=== PATIENT | male | born 1940 | race Hispanic/Latino ===

== ENCOUNTER 2018-01-08 08:05 | Outpatient (CLI) | payer MEDICAID ==
[2018-01-08 09:15] LABS: Blood Urea Nitrogen 16 mg/dL (9-20)
--- NOTE | 2018-01-08 10:06 | XRay Report ---
ROUTINE CHEST, TWO VIEWS: HISTORY: Malignant neoplasm of prostate. The trachea, heart, mediastinal contour, lung rogers and bony thorax are unremarkable. IMPRESSION: Unremarkable chest x-ray.
--- NOTE | 2018-01-09 09:38 | Nuclear Medicine Report ---
NUCLEAR MEDICINE WHOLE-BODY BONE SCAN: 01/08/18 CLINICAL: Malignant neoplasm prostate COMPARISON: None. TECHNIQUE: 25 millicuries technetium 99m MDP was injected intravenously and whole body scans were obtained at 3 hours. FINDINGS: Suspicious focal uptake in the right pubic bone and right inferior pubic ramus. Probably benign multifocal uptake in the shoulders, hands and feet. Lumbar scoliosis and uptake in the lumbar spine consistent with benign degenerative disease. Normal distribution of activity in the soft tissues. IMPRESSION: 1. Focal uptake in the right pubic bone and right inferior pubic ramus which is suspicious for metastatic disease. 2. Probably benign multifocal uptake in the shoulders, hands and feet. Recommend correlation with plain x-rays of the shoulders, hands and feet.
--- NOTE | 2018-01-09 11:37 | Cat Scan Report ---
FINAL REPORT EXAM: CT ABDOMEN PELVIS WO/W CON HISTORY: MALIGNANT NEOPLASM OF PROSTATE TECHNIQUE: CT abdomen and pelvis performed. Images extend from diaphragm to pubic symphysis. 100 cc Omnipaque 300 IV was administered. Oral contrast was administered. Coronal and sagittal reformatted images were obtained. PRIORS: None. FINDINGS: There are coronary artery atherosclerotic calcifications. There is chronic interstitial lung disease seen at visualized lung bases. There is some peripheral calcification involving the spleen which is probably related to old trauma. The visualized liver, spleen, pancreas, adrenal glands and left kidney demonstrate no significant abnormalities. There is a right renal cyst which measures about 3.2 cm. There are aortoiliac atherosclerotic calcifications. There is no abdominal aortic aneurysm. There is no evidence of intestinal obstruction. The appendix is not specifically identified. There is diverticulosis the left colon, but there is no evidence of acute diverticulitis. There is a prominent amount of stool in the left colon. Correlate for constipation. There is no abnormal lymphadenopathy seen. There are no abnormal fluid collections seen. There is no free intraperitoneal air. There is a Sim catheter in the bladder. The bladder wall is diffusely thickened which could reflect cystitis or may relate to muscular hypertrophy in the setting of bladder outlet obstruction. There are considerable degenerative changes throughout the lumbar spine. There is prominent sclerosis of lower lumbar vertebral bodies. Although this could relate to osteoblastic metastatic disease in the setting of prostate cancer, this may just be degenerative sclerosis. Some sclerotic change involving the right inferior pubic ramus is worrisome for osteoblastic metastatic disease. IMPRESSION: Chronic interstitial lung disease at visualized lung bases. Fair amount of stool in the colon. Correlate for constipation. Diffuse bladder wall thickening seen. Correlate for possible cystitis. Alternatively, this may relate to muscular hypertrophy in the setting of bowel ladder outlet obstruction. Diverticulosis. No acute diverticulitis seen. Sclerotic area involving right inferior pubic ramus. This is worrisome for osteoblastic metastatic disease. Considerable degenerative change in mid to lower lumbar spine. There is prominence sclerotic change involving vertebral bodies this region. Although this could also reflect osteoblastic metastases, sclerosis may be related to the degenerative disease. Coronary and aortic atherosclerotic disease.
== END 2018-01-08 08:06 | disposition home or self-care (01) ==
LOC: NM 08:05
PROVIDERS: ATTEND Urology
DX: C61 Malignant neoplasm of prostate (principal); I25.10 Atherosclerotic heart disease of native coronary artery without angina pectoris; J84.9 Interstitial pulmonary disease, unspecified; N28.1 Cyst of kidney, acquired; I70.0 Atherosclerosis of aorta; K57.90 Diverticulosis of intestine, part unspecified, without perforation or abscess without bleeding; M47.896 Other spondylosis, lumbar region; M41.86 Other forms of scoliosis, lumbar region
CPT/HCPCS: 36415; 71046; 74178; 78306; 82565; 84520; A9503; Q9967

== ENCOUNTER 2018-01-26 11:58 | Outpatient (CLI) | payer MEDICAID, MEDICARE ==
--- NOTE | 2018-01-26 16:37 | XRay Report ---
FINAL REPORT EXAM: XR PELVIS 1-2V HISTORY: MALIGNANT NEOPLASM OF PROSTATE COMPARISON: CT of the abdomen and pelvis performed on 01/08/2018 TECHNIQUE: Single frontal view of the pelvis. FINDINGS: There is sclerosis at the right inferior pubic ramus, the lower lumbar spine, and the upper sacrum. There is no acute fracture or dislocation. The overlying soft tissues are normal. IMPRESSION: Sclerosis of the right inferior pubic ramus, lower lumbar spine, and upper sacrum, suspicious for metastatic disease. Findings are similar to the previous CT. No acute fracture or dislocation.
--- NOTE | 2018-01-26 16:54 | XRay Report ---
FINAL REPORT EXAM: XR FOOT BILAT 3+V HISTORY: MALIGNANT NEOPLASM OF PROSTATE COMPARISON: None. TECHNIQUE: Three views of each foot FINDINGS: Right foot: The bone marrow 1st and 5th metatarsal bones is mildly heterogeneous. There is also heterogeneity to the proximal phalanx of the 5th digit. There are marginal erosions of the 1st and 5th metatarsophalangeal joints. . There is no acute fracture or dislocation. There is hallux valgus deformity Left foot: There is heterogeneity to the bone marrow of the proximal phalanx of the great toe. There are marginal erosions of the 1st, 4th, and 5th metatarsophalangeal joints. There is hallux valgus deformity. There is no acute fracture or dislocation. IMPRESSION: 1. Heterogeneity to the bone marrow the right 1st and 5th metatarsal bones, proximal phalanx of the right 5th digit, and the proximal phalanx of the left great toe. Findings are nonspecific but metastatic disease is not excluded. 2. Marginal erosions involving the right 1st and 5th metatarsophalangeal joints and the left 1st, 4th, and 5th metatarsophalangeal joints. Findings may represent changes from erosive arthritis, gout, rheumatoid arthritis or reactive arthritis.
--- NOTE | 2018-01-26 20:23 | XRay Report ---
FINAL REPORT EXAM: XR HAND BILAT 3+V HISTORY: MALIGNANT NEOPLASM OF PROSTATE TECHNIQUE: AP, lateral, and oblique views of the each hand bilaterally PRIORS: None. FINDINGS: There is no evidence for acute fracture or dislocation. No soft tissue swelling or radiopaque foreign bodies are seen. There is focal soft tissue swelling along the webbing side of the right first metacarpophalangeal joint. Bony mineralization is normal. No focal sclerotic or destructive lytic abnormality is seen. In the left hand, there is a flexion deformity involving the 3rd and 5th DIP joints with severe joint space narrowing at that level. There is also severe [id number] joint space narrowing at the interphalangeal joint of the left thumb. Moderate narrowing the radiocarpal joint is present. On the right, there are flexion deformities involving the 2nd, 4th, and 5th DIP joints with severe joint space narrowing at those levels. There also complete joint space loss at the interphalangeal joint of the right thumb. Moderate narrowing of the 1st metacarpophalangeal joint is seen with subchondral cyst formations on both sides of the joint. IMPRESSION: 1. no acute bony or soft tissue abnormality noted. 2. Significant and severe joint space narrowing at multiple levels bilaterally associated with flexion deformities involving multiple fingers bilaterally. Findings are most typical of osteoarthritis.
--- NOTE | 2018-01-26 23:12 | XRay Report ---
FINAL REPORT PROCEDURE: XR SHOULDER BILAT 2+V TECHNIQUE: BILATERAL shoulder radiographs including AP views in internal and external rotation. HISTORY: MALIGNANT NEOPLASM OF PROSTATE COMPARISON: No prior studies are available for comparison. FINDINGS: Fracture(s) and/or Dislocation(s): None. Joint space(s): There is narrowing of the bilateral acromioclavicular joints with mild to moderate degree osteophyte formation. Bilateral glenohumeral joints also demonstrated mild degree osteophyte formation. Right humeral head appears deformed with the inhomogeneous sclerotic changes. Irregular ossific densities are noted along the inferior aspect of glenohumeral joint. Soft tissues: Normal. Bone mineralization: Normal. Foreign bodies: None. 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 Small ossific densities along the inferior aspect of glenohumeral joint most likely represent loose bodies.
== END 2018-01-26 11:59 | disposition home or self-care (01) ==
LOC: XRAY 11:58
PROVIDERS: ATTEND Urology
DX: C61 Malignant neoplasm of prostate (principal); M19.012 Primary osteoarthritis, left shoulder; M19.011 Primary osteoarthritis, right shoulder; M20.091 Other deformity of right finger(s); M19.042 Primary osteoarthritis, left hand; M19.041 Primary osteoarthritis, right hand; M85.871 Other specified disorders of bone density and structure, right ankle and foot; G95.89 Other specified diseases of spinal cord
CPT/HCPCS: 72170

== ENCOUNTER 2018-04-14 11:44 | Outpatient (CLI) | payer MEDICAID, MEDICARE ==
--- NOTE | 2018-04-14 16:01 | XRay Report ---
FINAL REPORT PROCEDURE: AP view pelvis TECHNIQUE: Pelvis radiograph, AP view. CPT 62375 HISTORY: MALIGNANT NEOPLASM OF PROSTATE COMPARISON: No prior studies are available for comparison. FINDINGS: No fracture or dislocation is visualized. There is abnormal increased density seen in the right side of the symphysis pubis extending into the right ischium. There is also sclerosis of the visualized lower lumbar vertebral bodies and upper sacrum centrally. This is unchanged. I cannot exclude minimal progression of the blastic change extending into the right ischium inferiorly. Hip joints and SI joints as well as the symphysis pubis are well preserved. S IMPRESSION: Sclerotic densities, blastic change, visualized right side of the symphysis pubis extending into the right ischium. I cannot exclude mild progression inferiorly in the right ischium. Blastic change again visualized lower lumbar vertebral bodies and upper sacrum without interval change. Metastatic disease in the areas of blastic change is suspected
== END 2018-04-14 11:45 | disposition home or self-care (01) ==
LOC: XRAY 11:44
PROVIDERS: ATTEND Urology
DX: C61 Malignant neoplasm of prostate (principal); R97.20 Elevated prostate specific antigen [PSA]
CPT/HCPCS: 72170